=== PATIENT | male | born 1975 | race Caucasian/White ===

== ENCOUNTER 2023-05-17 21:34 | Emergency (ER) | payer SELFPAY ==
[2023-05-17] MEDS ORDERED: Sodium Chloride 0.9% 10 ML Syringe FLUSH PRN (21:45)
[2023-05-17] MEDS ORDERED: hydrALAZINE 20 MG/ML SDV IVPUSH ONE (21:47)
[2023-05-17] MEDS ORDERED: Furosemide 40 MG/4 ML VIAL IVPUSH ONE (21:47)
[2023-05-17] MEDS ORDERED: Metolazone 5 MG Tab PO ONE (21:47)
[2023-05-17 22:11] LABS: BLOOD UREA NITROGEN,BUN 16 mg/dL (7-18); BUN/CREATININE RATIO 13.3 (9-20); CALCIUM 8.3 mg/dL (8.6-10.2); CARBON DIOXIDE,CO2 29 mmol/L (21-32); CHLORIDE,CL 106 mmol/L (100-110); CREATININE 1.2 mg/dL (0.70-1.30); ESTIMATED GFR 74 mL/min (>60); GLUCOSE RANDOM 116 mg/dL (80-116); SODIUM,NA 141 mmol/L (135-145)
[2023-05-17 22:15] LABS: HEMATOCRIT 46.4 % (38.3-50.1); MEAN CORPUSCULAR HEMOGLOBIN 31.6 pg (27.0-33.3); MEAN CORPUSCULAR HGB CONC 34.5 g/dL (28.7-35.3); MEAN CORPUSCULAR VOLUME 91.4 fL (80.8-98.7); RED BLOOD CELL COUNT 5.08 x10(6)uL (3.90-5.90); WHITE BLOOD CELL COUNT,WBC 8.6 x10-3/uL (3.2-10.1)
[2023-05-17 22:17] LABS: A/G RATIO 0.9; ALANINE AMINOTRANSFERASE,ALT 56 U/L (12-36); ALBUMIN 3.3 g/dL (3.5-5.2); ALKALINE PHOSPHATASE 75 IU/L (56-112); ASPARTATE AMNIOTRANSFERASE,AST 38 IU/L (5-25); BILIRUBIN TOTAL 0.8 mg/dL (0.1-1.3)
[2023-05-17 22:23] LABS: INR 0.96 (1.00-1.24); PROTHROMBIN TIME 9.9 sec (9.0-11.1)
[2023-05-17 22:25] LABS: PTT,PARTIAL THROMBOPLSTIN TIME 25.9 SECONDS (24.4-33.2)
== END 2023-05-17 23:56 | disposition home or self-care (01) ==
LOC: FB.ED 21:34
DX: I11.0 Hypertensive heart disease with heart failure (principal); I50.9 Heart failure, unspecified; Z79.899 Other long term (current) drug therapy
CPT/HCPCS: 36415; 71045; 80053; 83880; 84484; 85027; 85610; 85730; 93005; 96374; 96375; 99285; A9270; J0360; J1940; J3490